=== PATIENT | female | born 1945 | race African-American/Black ===

== ENCOUNTER 2016-06-21 06:43 | Emergency (ER) | payer MEDICARE, BC, OTHER | END 2016-06-21 13:09 | disposition home or self-care (01) | LOC: ER 06:43 | CPT/HCPCS: 70450; 71010; 93005 ==

== ENCOUNTER 2016-06-25 04:42 | Emergency (ER) | payer MEDICARE, BC, OTHER ==
[2016-06-25] MEDS ORDERED: PHENYLEPHRINE .5% NA SPR 15 ML BTL ONE ×2 (05:13→05:31)
[2016-06-25] MEDS ORDERED: HURRICAINE SPRAY TOPICAL ONE (05:31)
== END 2016-06-25 06:53 | disposition home or self-care (01) ==
LOC: ER 04:42
DX: R04.0 Epistaxis (principal)
CPT/HCPCS: 36415; 85025; 85610; 85730

== ENCOUNTER 2016-06-27 02:50 | Emergency (ER) | payer MEDICARE, BC, OTHER ==
[2016-06-27] MEDS ORDERED: LIDOCAINE/EPI 1% MDV 50 ML ONE (03:51)
[2016-06-27] MEDS ORDERED: SILVER NITRATE SWABS TOPICAL ONE (04:38)
== END 2016-06-27 05:24 | disposition home or self-care (01) ==
LOC: ER 02:50
DX: R04.0 Epistaxis (principal)
CPT/HCPCS: 36415; 85025

== ENCOUNTER 2016-06-27 05:28 | Emergency (ER) | payer MEDICARE, BC, OTHER | END 2016-06-27 07:57 | disposition home or self-care (01) | LOC: ER 05:28 | DX: R04.0 Epistaxis (principal) ==